=== PATIENT | male | born 1975 | race Two or more races ===

== ENCOUNTER 2025-08-19 08:40 | Outpatient (AMB) | payer OTHER, SELFPAY ==
--- NOTE | 2025-08-19 08:40 | A.OFFPC_ITS ---
Vital Signs 08/19/25 08:41 Height 5 ft 8.75 in Weight 245 lb 6 oz BMI 36.5 BP 124/84 Blood Pressure Location Lt brachial Position Sitting Respiration 16 Pulse 64 Pulse Source Pulse Oximeter Temp 96.9 F Temp Source Temporal Artery Scan Pulse Oximetry (%) 96 Intake Visit Reasons: Annual KATHY-Marcel pt Manager Telemetry Required: No Accompanied by: Self / Same As Patient Allergies No Known Allergies Allergy (Verified 08/19/25 08:42) Medication List - Last Reconciled 08/19/25 by Eden Rod MD No Known Home Meds Tobacco use date assessed: 08/19/25 Dental Screening Dental Screen Date: 08/19/25 Did you have a dental visit in the last 12 months?: Yes Did you have a dental problem in the last 6 months where you did not have access to dental care?: No Was dental information given to patient?: Patient has dentist HPI HPI Comments History of Present Illness Details The patient is a 50-year-old male presenting to re-establish care and for a physical. Obesity: The patient has experienced a recent weight gain of 10 pounds, with his weight increasing from 235 pounds to his current weight since last visit in March 2025 . He attributes this to an increase in consumption of sweets. Hypercholesterolemia: The patient has a history of issues with cholesterol and has previously been on cholesterol medication, but is currently off statin. Obstructive Sleep Apnea: The patient was previously referred for sleep equipment but did not receive it and did not follow up with the sleep clinic at [facility]. His partner has noted an increase in his snoring, which may be associated with his recent weight gain. Impaired fasting glucose- due for repeat a1c Health Maintenance: The patient underwent a prior colonoscopy performed by Dr. Wayne at [facility]. He has not yet received his annual flu shot. Cerumen Impaction: The patient reports a history of significant wax buildup in his ears, particularly the left one. He has been in the habit of putting water and soap in his ears during showers in an attempt to clean them. Medical History: - Hypercholesterolemia - Sleep apnea - Impaired fasting glucose - History of diverticulitis, not an acti ve issue Social History: - Diet: Reports increased consumption of sweets. - Travel: Recently traveled to [place]. - Mental Health: Screens for depression (PHQ-9) and anxiety (LOBO-7) were negative, with scores of 0 for both. - Exercise: Encouraged to engage in 2.5 to 3 hours of aerobic activity per week. Diagnostic Results: - PHQ-9 score: 0. - LOBO-7 score: 0. Review of Systems - General: Reports a 10-pound weight gai n. - HEENT: Reports a history of wax buildu p in his ears. - Respiratory: Reports increased snoring . - Gastrointestinal: Reports normal bowel movements. Denies abdominal pain. - Musculoskeletal: Denies any issues wit h his toes or feet. - Allergic/Immunologic: Denies any known allergies. - Psychiatric: Denies symptoms of depres rashi and anxiety based on screening scores. Physical Exam - Gen: NAD - HEENT: Examination of the left ear rev eals cerumen impaction. The right ear is clear. - Neck: Supple with no lymph node enlarg ement. Carotid arteries are clear to auscultation bilaterally with no bruits. - Cardiovascular: Auscultation reveals n ormal heart sounds and a soft murmur. - Respiratory: Lungs are clear to auscul tation bilaterally. - Abdomen: Exam reveals normal bowel patricia nds, and the abdomen is soft, non- tender, and not distended. - Extremities: There is no swelling in t he legs. Assessment and Plan 1. Obesity - The patient has shown a recent 10-poun d weight gain, which he attributes to increased sweet consumption. - He has been counseled to reduce his in take of sweets and starches and to aim for 15 pounds of weight loss over the next six months. - He was also advised to engage in 2.5-3 hours of aerobic activity weekly. 2. Hypercholesterolemia - The patient has a history of high chol esterol and is currently off medication. - A full fasting lab panel has been orde red to check his cholesterol and glucose levels. - If his cholesterol is found to be elev ated, he will be restarted on a statin medication. 3. Obstructive Sleep Apnea - The patient reports increased snoring and had sleep study done at [facility] - A new referral will be placed to a sle ep clinic for evaluation. 4. Cerumen Impaction, Left Ear - Physical exam revealed wax buildup. - The patient was educated to stop putti ng water in his ears during showers. - A prescription for joqw-zla-rwextdx pe roxide-based eardrops was sent to soften the wax. 5. Impaired fasting glucose- check a1c 6. Health Maintenance - The patient is re-establishing care. - He was advised to get a flu shot and a COVID-19 vaccine - A request will be made to obtain recor ds from his previous colonoscopy. - Follow-up is scheduled in six months. Discussion Notes I explained that if his cholesterol numbers are high, we will need to restart his cholesterol medication. We also discussed his recent 10-pound weight gain, and I counseled him on dietary changes, including reducing sweets and starches, with a goal of losing 15 pounds in the next six months. I informed him that I am placing a referral to a sleep clinic due to his report of increased snoring, which could be related to his weight gain. Regarding the wax buildup in his left ear, I educated him on the proper use of peroxide-based eardrops. Patient Instructions - Go to a lab to have your blood drawn. You must fast (no food or drink, except water) for about 10 hours before the test. Please get this done within the next week or two. - A referral has been sent to a sleep cl in. - Work on losing 15 pounds over the next six months by cutting back on sweets and starchy foods. - Try to get 2.5 to 3 hours of aerobic e xercise (like brisk walking, jogging, or cycling) each week. - For the wax in your left ear, use the zpzi-vyx-occrcps eardrops as prescribed. Put five drops in the ear twice a day for four days. On the fourth day, you can gently flush your ear with lukewarm water. - Please get your annual flu shot. Also consider getting a COVID-19 vaccine. [facility] Medical History (Updated 08/19/25 @ 09:24 by Eden Rod MD) Routine adult health maintenance Impaired fasting glucose Obstructive sleep apnea Obesity Hyperlipidemia, unspecified Surgical History (Updated 08/18/25 @ 18:10 by Eden Rod MD) S/P laparoscopic-assisted sigmoidectomy History of colonoscopy (~05/27/25) Family History (Updated 08/18/25 @ 18:06 by Eden Rod MD) Mother Stomach cancer Other Colon cancer Prostate cancer Social History Housing: House Patient Tobacco Use Status: Never used Tobacco e-Cigarette/Vaping Use: Never Used Current occupational status: employed Current occupation: securities broker Questionnaire PHQ-9 Over the last 2 weeks, how often have you been bothered by any of the following problems? 1. Little interest or pleasure in doing things: not at all 2. Feeling down, depressed, or hopeless: not at all 3. Trouble falling or staying asleep, or sleeping too much: not at all 4. Feeling tired or having little energy: not at all 5. Poor appetite or overeating: not at all 6. Feeling bad about yourself - or that you are a failure or have let yourself or your family down: not at all 7. Trouble concentrating on things, such as reading the newspaper or watching television: not at all 8. Moving or speaking so slowly that other people could have noticed. Or the opposite - being so fidgety or restless that you have been moving around a lot more than usual: not at all 9. Thoughts that you would be better off or of hurting yourself in some way: not at all Total score: 0 Depression Screening Interpretation: Negative Depression Screening Done: Yes 68007 - PHQ-9 Billing: Yes Source: Developed by Drs. David Madsen, Bertha Perry, Anselmo Valdez and colleagues, with an educational ashley from [employer]. Thrive Questionnaire Date Thrive assessed: 08/19/25 I am a: Patient What is your living situation today?: I have a steady place to live Within the past 12 months, did the food you bought not last and you didn't have the money to get more?: Never true Within the past 12 months, did you worry whether your food would run out before you got money to buy more?: Never true Do you have trouble paying for medicines?: No Do you have trouble getting transportation to medical appointments?: No Do you have trouble paying your heating and electricity bill?: No Do you have trouble taking care of your child, family member or friend?: No Do you have trouble with day-to-day activities such as bathing, preparing meals, shopping, managing finances, etc.?: No Are you currently unemployed and looking for a job?: No Are you interested in more education?: No Please select the resources that you would like help with: None THRIVE Score: 0 AUDIT C Alcohol Use Questionnaire (AUDIT-C) 1. How often do you have a drink containing alcohol?: 2-4 times a month 2. How many drinks containing alcohol do you have on a typical day when you are drinking?: 1 or 2 3. How often do you have six or more drinks on one occasion?: Never Total Score: 2 LOBO-7 AMB Questionnaire LOBO-7 Date LOBO - 7 assessed: 08/19/25 Feeling nervous, anxious, or on edge: 0 = Not at all Not being able to stop or control worryin = Not at all Worrying too much about different things: 0 = Not at all Trouble relaxin = Not at all Being so restless that it is hard to sit still: 0 = Not at all Becoming easily annoyed or irritable: 0 = Not at all Feeling afraid as if something awful might happen: 0 = Not at all Total LOBO-7 score (0-4 normal; 5-9 mild; 10-14 moderate; 15-21 severe): 0 Source: Developed by Drs. David Madsen, Bertha Perry, Anselmo Valdez and colleagues, with an educational ashley from [employer]. Physical exam (Primary Care) Vital Signs: Last Vital Signs Temp 96.9 F 08/19/25 08:41 Pulse 64 08/19/25 08:41 Resp 16 08/19/25 08:41 BP 124/84 08/19/25 08:41 Pulse Ox 96 08/19/25 08:41 BMI result Body Mass Index 36.5 Tobacco/Smoking Status: Tobacco use Status Tobacco use date assessed 08/19/25 08/19/25 08:45 Patient Tobacco Use Status Never used Tobacco 08/19/25 08:45 e-Cigarette/Vaping Use Never Used 08/19/25 08:45 PHQ-9: PHQ-9 Score PHQ-9: Total score 0 08/19/25 09:25 Depression Screening Interpretation: Negative Thrive Assessment: Date of Thrive Assessment Date Thrive assessed 08/19/25 08/19/25 09:15 Coding Level of Care Code New Pt Prev Care 40-64y(76140) Diagnoses Routine adult health maintenance Z00.00 Hyperlipidemia, unspecified hyperlipidemia type E78.5 Hyperlipidemia type: unspecified Impaired fasting glucose R73.01 Class 2 severe obesity due to excess calories with serious comorbidity and body mass index (BMI) of 36.0 to 36.9 in adult E66.01; Z68.36 Body mass index: BMI 36.0-36.9 Obesity classification: adult class 2 (BMI 35 - 39.9) Obesity type: due to excess calories Serious obesity comorbidity presence: with serious comorbidity Obstructive sleep apnea G47.33 Additional Codes PHQ-9 - 47922 - PHQ-9 Billing: Yes ([id number]) Assessment & Plan Assessment & Plan (1) Routine adult health maintenance: Code(s): Z00.00 - Encounter for general adult medical examination without abnormal findings Category: Medical (2) Hyperlipidemia, unspecified: Code(s): E78.5 - Hyperlipidemia, unspecified Category: Medical Qualifiers: Hyperlipidemia type: unspecified Qualified Code(s): E78.5 - Hyperlipidemia, unspecified (3) Impaired fasting glucose: Code(s): R73.01 - Impaired fasting glucose Category: Medical (4) Obesity: Code(s): E66.9 - Obesity, unspecified Category: Medical Qualifiers: Body mass index: BMI 36.0-36.9 Obesity classification: adult class 2 (BMI 35 - 39.9) Obesity type: due to excess calories Serious obesity comorbidity presence: with serious comorbidity Qualified Code(s): E66.01 - Morbid (severe) obesity due to excess calories; Z68.36 - Body mass index [BMI] 36.0-36.9, adult (5) Obstructive sleep apnea: Code(s): G47.33 - Obstructive sleep apnea (adult) (pediatric) Category: Medical Plan - The patient will get a full fasting lab panel, including cholesterol and glucose, within the next one to two weeks. - A referral to a sleep clinic will be placed for evaluation of sleep apnea. - If the patient's cholesterol levels are high, he will be restarted on statin medication. - The patient has been counseled to reduce his intake of sweets and starches with a goal of losing 15 pounds over the next six months. - The patient is advised to engage in 2.5 to 3 hours of aerobic activity per week. - A prescription for mojw-fvn-amuvazp peroxide-based eardrops was provided for the cerumen in the left ear. - The patient is encouraged to get his flu shot and a COVID-19 vaccine. - An attempt will be made to obtain records of his prior colonoscopy. Orders: Orders Lipid Panel Today E66.9 - Obesity, unspecified, E78.5 - Hyperlipidemia, unspecified, G47.33 - Obstructive sleep apnea (adult) (pediatric), R73.01 - Impaired fasting glucose, Z00.00 - Encounter for general adult medical examination without abnormal findings Hemoglobin A1c Today E66.9 - Obesity, unspecified, E78.5 - Hyperlipidemia, unspecified, G47.33 - Obstructive sleep apnea (adult) (pediatric), R73.01 - Impaired fasting glucose, Z00.00 - Encounter for general adult medical examination without abnormal findings Complete Blood Count Auto Diff Today E66.9 - Obesity, unspecified, E78.5 - Hyperlipidemia, unspecified, G47.33 - Obstructive sleep apnea (adult) (pediatric), R73.01 - Impaired fasting glucose, Z00.00 - Encounter for general adult medical examination without abnormal findings Comprehensive Met. Panel Today E66.9 - Obesity, unspecified, E78.5 - Hyperlipidemia, unspecified, G47.33 - Obstructive sleep apnea (adult) (pediatric), R73.01 - Impaired fasting glucose, Z00.00 - Encounter for general adult medical examination without abnormal findings Referrals Sleep Medicine Referral G47.33 - Obstructive sleep apnea (adult) (pediatric), Z00.00 - Encounter for general adult medical examination without abnormal findings Medications: New carbamide peroxide 6.5% (Debrox) 5 drps otic (ear) left BID 15 mL 0RF 4 days
[2025-08-19 08:41] VITALS: BP 124/84; PULSE 64; RESP 16; TEMP 36.1; O2SAT 96; BMI 36.5
--- OUTSIDE RECORDS SUMMARY | 2025-08-19 09:03 | XMS_ITS | Clinical Summary ---
Author Organization [address] [facility] Address [address] [place] [address] Phone Care Team Providers Care Field Sales Representative Name Role Phone Eden Rod MD Primary Care Provider [phone] Allergies No known active allergies Medications polyethylene glycol (Golytely) 236-22.74-6.74 -5.86 gram solution Take 4L by mouth once for one dose. May substitue any PEG. Starting at 2PM the day before your procedure drink 1 8oz glasses at your own pace until you complete half of the gallon. Finish 2nd half of the gallon at 8PM. 4000 mL 5 Active bisacodyL (DULCOLAX) 5 mg EC tablet Take 2 tablets by mouth right before beginning bowel prep. See instructions provided by the office 2 tablet 5 Active Encounters Date Type Department Care Team Description 05/27/2025 12:20 PM EDT Anesthesia Event [facility] Endoscopy [address] [place] [address] Herrera Kearns MD Pierce, Trudy A, CRNA 05/27/2025 11:12 AM EDT - 05/27/2025 11:59 PM EDT Hospital Encounter [facility] [address] [place] [address] Brandon Wayne MD Pierce, Trudy A, CRNA Saliga, Jesse L, MD Hx of colonic polyps Discharge Disposition: Home or Self Care from Last 3 Months Surgical History Surgery Date Site/Laterality Comments COLONOSCOPY COLECTOMY 2/2 diverticulitis Medical History Medical History Date Comments Diverticulitis Social History Tobacco Use Types Packs/Day Years Used Date Smoking Tobacco: Never Smokeless Tobacco: Never Alcohol Use Standard Drinks/Week Comments Yes 0 (1 standard drink = 0.6 oz pur e alcohol) socially Interpersonal Safety Answer Date Record ed Physical Abuse Unrecognized value 05/27/2025 Verbal Abuse Unrecognized value 05/27/2025 Sex and Gender Information Value Date Recorded Sex Assigned at Not on file Legal Sex Male 9:36 AM EST Gender Identity Not on file Sexual Orientation Not on file Obstetrics History Last Filed Vital Signs Vital Sign Reading Time Taken Comments Blood Pressure 122/87 05/27/2025 12:51 PM EDT Pulse 68 05/27/2025 1:01 PM EDT Temperature 36.7 C (98.1 F) 05/27/2025 12:41 PM EDT Respiratory Rate 16 05/27/2025 1:01 PM EDT Oxygen Saturation 100% 05/27/2025 1:01 PM EDT Inhaled Oxygen Concentration - - Weight 109 kg (240 lb) 05/27/2025 11:33 AM EDT Height 172.7 cm (5' 8 ) 05/27/2025 11:33 AM EDT Body Mass Index 36.49 05/27/2025 11:33 AM EDT Plan of Treatment Health Maintenance Due Date Last Done Comments Hepatitis B Vaccines (1 of 3 - 19+ 3-dose series) 1992 Pneumococcal Vaccine: 50+ Years (2 of 2 - PCV) 2023 10/12/2018 Zoster Vaccines (1 of 2) 2023 Depression Screening 10/08/2024 Cholesterol Screening (Lipid Panel) 12/19/2024 HIV Screening 12/19/2024 Hepatitis C Screening 12/19/2024 Social Influencers of Health Screening 12/19/2024 COVID-19 Vaccine ( season) 2025 07/29/2022, 10/02/2021, 12/25/2020, Additional history exists Influenza Vaccine (#1) 2025 , 07/16/2020, 09/23/2018 DTaP,Tdap,and Td Vaccines (2 - Td or Tdap) 01/03/2027 01/03/2017 Colorectal Cancer Screening: Colonoscopy 05/27/2035 05/27/2025 RSV Immunization Adult Patients (1 - 1-dose 75+ series) 2048 HIB Vaccines Aged Out No longer eligi ble based on patient's age to complete this topic HPV Vaccines Aged Out No longer eligi ble based on patient's age to complete this topic Hepatitis A Vaccines Aged Out No long er eligible based on patient's age to complete this topic IPV Vaccines Aged Out No longer eligi ble based on patient's age to complete this topic MMR Vaccines Aged Out No longer eligi ble based on patient's age to complete this topic Meningococcal ACWY Vaccine Aged Out N o longer eligible based on patient's age to complete this topic Meningococcal B Vaccine Aged Out No l onger eligible based on patient's age to complete this topic RSV Immunization Patients Under 20 months Aged Out No longer eligible based on patient's age to complete this topic Varicella Vaccines Aged Out No longer eligible based on patient's age to complete this topic Procedures Procedure Name Priority Date/Time Associated Diagnosis Comments COLONOSCOPY Routine 05/27/2025 12:40 PM EDT Hx of colonic polyps from Last 3 Months Results * COLONOSCOPY Anesthesia - MAC; [facility] END[facility]COPY (05/27/2025 12:40 PM EDT) Anatomical Region Laterality Modality Other 05/27/2025 12:2 7 PM EDT Impressions 05/27/2025 12:42 PM EDT - Internal hemorrhoids. - Diverticulosis in the entire examined colon. - Patent end-to-side colo-colonic anastomosis, characterized by healthy appearing mucosa. - No specimens collected. Recommendation: - Repeat colonoscopy in 5 years for surveillance. - Use fiber, for example Citrucel, Fibercon, Konsyl or Metamucil. Narrative 05/27/2025 12:42 PM EDT [facility] GI Patient Name: Ann Coreas Procedure Date: 05/27/2025 12:27 PM Date of : 1975 Age: 49 Gender: Male Note Status: Finalized Attending MD: Brandon Wayne MD, Procedure Date No Time: 05/27/2025 Procedure: Colonoscopy Indications: Family history of colon cancer in a first-degree relative before age 60 years Providers: Brandon Wayne MD Referring MD: Brandon Wayne MD Medicines: Propofol per Anesthesia Complications: No immediate complications. Estimated Blood Loss: Estimated blood loss: none. Procedure: Pre-Anesthesia Assessment: - ASA Grade Assessment: II - A patient with mild systemic disease. After I obtained informed consent, the scope was passed under direct vision. Throughout the procedure, the patient's blood pressure, pulse, and oxygen saturations were monitored continuously.The Colonoscope was introduced through the anus and advanced to the cecum, identified by appendiceal orifice and ileocecal valve. The colonoscopy was performed without difficulty. The patient tolerated the procedure well. The quality of the bowel preparation was good. Findings: The perianal and digital rectal examinations were normal. Internal hemorrhoids were found during endoscopy. The hemorrhoids were Grade I (internal hemorrhoids that do not prolapse). Scattered diverticula were found in the entire colon. There was evidence of a prior end-to-side colo-colonic anastomosis in the sigmoid colon. This was patent and was characterized by healthy appearing mucosa. The anastomosis was traversed. Procedure Code(s): --- Professional --- 88277, Colonoscopy, flexible; diagnostic, including collection of specimen(s) by brushing or washing, when performed (separate procedure) Diagnosis Code(s): --- Professional --- K64.0, First degree hemorrhoids Z98.0, Intestinal bypass and anastomosis status Z80.0, Family history of malignant neoplasm of digestive organs K57.30, Diverticulosis of large intestine without perforation or abscess without bleeding CPT copyright 2020 [employer]. All rights reserved. The codes documented in this report are preliminary and upon special duty nurse review may be revised to meet current compliance requirements. Brandon Wayne MD 05/27/2025 12:42:18 PM This report has been signed electronically.Brandon Wayne MD Number of Addenda: 0 Note Initiated On: 05/27/2025 12:27 PM Scope In: Scope Out: Endoscopy Department at [facility] - [address] [place] [id number] Procedure Note Brandon Wayne MD - 05/27/2025 [facility] GI Patient Name: Ann Coreas Procedure Date: 05/27/2025 12:27 PM Date of : 1975 Age: 49 Gender: Male Note Status: Finalized Attending MD: Brandon Wayne MD, Procedure Date No Time: 05/27/2025 Procedure: Colonoscopy Indications: Family history of colon cancer in a first-degree relative before age 60 years Providers: Brandon Wayne MD Referring MD: Brandon Wayne MD Medicines: Propofol per Anesthesia Complications: No immediate complications. Estimated Blood Loss: Estimated blood loss: none. Procedure: Pre-Anesthesia Assessment: - ASA Grade Assessment: II - A patient with mild systemic disease. After I obtained informed consent, the scope was passed under direct vision. Throughout theprocedure, the patient's blood pressure, pulse, and oxygen saturations were monitored continuously.The Colonoscope was introduced through the anus and advanced to the cecum, identified by appendiceal orifice and ileocecal valve. The colonoscopy was performed without difficulty. The patient tolerated the procedure well. The quality of the bowel preparation was good. Findings: The perianal and digital rectal examinations were normal. Internal hemorrhoids were found during endoscopy.The hemorrhoids were Grade I (internal hemorrhoids thatdo not prolapse). Scattered diverticula were found in the entirecolon. There was evidence of a prior oau-mz-lmtuflhb-colonic anastomosis in the sigmoid colon. This was patentand was characterized by healthy appearing mucosa. The anastomosis was traversed. Procedure Code(s): --- Professional --- 10433, Colonoscopy, flexible; diagnostic, including collection of specimen(s) by brushing or washing,when performed (separate procedure) Diagnosis Code(s): --- Professional --- K64.0, First degree hemorrhoids Z98.0, Intestinal bypass and anastomosis status Z80.0, Family history of malignant neoplasm of digestive organs K57.30, Diverticulosis of large intestine without perforation or abscess without bleeding CPT copyright 2020 [employer]. All rights reserved. The codes documented in this report are preliminary and upon special duty nurse reviewmay be revised to meet current compliance requirements. Brandon Wayne MD 05/27/2025 12:42:18 PM This report has been signed electronically.Brandon Wayne MD Number of Addenda: 0 Note Initiated On: 05/27/2025 12:27 PM Scope In: Scope Out: Endoscopy Department at [facility] - [address] [place] [phone] IMPRESSION: - Internal hemorrhoids. - Diverticulosis in the entire examined colon. - Patent end-to-side colo-colonic anastomosis, characterized by healthy appearing mucosa. - No specimens collected. Recommendation: - Repeat colonoscopy in 5 years for surveillance. - Use fiber, for example Citrucel, Fibercon, Konsylor Metamucil. us Brandon Wayne MD GI~PROCEDURE ORDERABLES Final Re sult from Last [address] [facility] [place] [address] [employer] Care Teams Field Sales Representative Relationship Specialty Start Date End Date Eden Rod MD [address] [place] [id number] PCP - General Internal Medicine 03/29/20
--- OUTSIDE RECORDS SUMMARY | 2025-08-19 09:03 | XMS_ITS | Patient Health Record ---
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
== END 2025-08-19 09:23 | disposition home or self-care (01) ==
LOC: HO.HMCHD 08:41
PROVIDERS: PCP Internal Medicine; Visit Provider Internal Medicine
DX: Z00.00 Encounter for general adult medical examination without abnormal findings (principal); E78.5 Hyperlipidemia, unspecified; R73.01 Impaired fasting glucose; E66.01 Morbid (severe) obesity due to excess calories; Z68.36 Body mass index [BMI] 36.0-36.9, adult; G47.33 Obstructive sleep apnea (adult) (pediatric)

== ENCOUNTER → 2025-08-19 08:40 | Outpatient (BNVA) | payer OTHER, SELFPAY | PROVIDERS: PCP Internal Medicine; Visit Provider Internal Medicine | DX: Z00.00 Encounter for general adult medical examination without abnormal findings (principal); E78.5 Hyperlipidemia, unspecified; R73.01 Impaired fasting glucose; E66.01 Morbid (severe) obesity due to excess calories; Z68.36 Body mass index [BMI] 36.0-36.9, adult; G47.33 Obstructive sleep apnea (adult) (pediatric); Z13.31 Encounter for screening for depression; Z13.39 Encounter for screening examination for other mental health and behavioral disorders | CPT/HCPCS: 96127 ==